=== PATIENT | male | born 1990 ===

== ENCOUNTER 2022-03-17 15:36 | Emergency (ER) | payer MEDICAID | END 2022-03-17 16:38 | disposition home or self-care (01) | LOC: MW.ED 15:36 | DX: L30.9 Dermatitis, unspecified (principal); Z79.899 Other long term (current) drug therapy | CPT/HCPCS: 99282; 99283 ==

== ENCOUNTER 2023-03-14 06:50 | Emergency (ER) | payer SELFPAY ==
[2023-03-14] MEDS ORDERED: Morphine 4 MG/ML Syringe IVPUSH ONE (06:53)
[2023-03-14] MEDS ORDERED: droPERidol 5 MG/2 ML SDV IVPUSH ONE (06:53)
[2023-03-14] MEDS: Sodium Chloride 0.9% 1,000 ML IV ONE ×2 (07:02→09:16)
[2023-03-14] MEDS ORDERED: Iopamidol 755 MG/ML 500 ML Multipack Bottle IVPUSH ONE (07:12)
[2023-03-14 07:21] LABS: BASOPHILS ABSOLUTE AUTO 0.06 K/uL (0.00-0.20); BASOPHILS PERCENT AUTO 0.4 % (0.0-1.0); EOSINOPHILS ABSOLUTE AUTO 0.05 K/uL (0.00-0.45); EOSINOPHILS PERCENT AUTO 0.4 % (0.0-6.0); HEMATOCRIT 41.4 % (42.0-52.0); HEMOGLOBIN 14.5 g/dL (14.0-18.0); IMMATURE GRAN ABSOLUTE AUTO 0.09 K/uL (0.00-0.05); IMMATURE GRAN PERCENT AUTO 0.6 % (0.0-0.4); LYMPHOCYTES ABSOLUTE AUTO 1.12 K/uL (1.00-4.80); LYMPHOCYTES PERCENT AUTO 7.9 % (24.0-44.0); MEAN CORPUSCULAR HEMOGLOBIN 30.4 pg (28.0-32.0); MEAN CORPUSCULAR VOLUME 86.8 fL (83.0-99.0); MEAN PLATELET VOLUME 8.7 fL (9.4-12.4); MONOCYTES ABSOLUTE AUTO 0.58 K/uL (0.00-0.80); MONOCYTES PERCENT AUTO 4.1 % (0.0-8.0); NEUTROPHILS PERCENT AUTO 86.6 % (41.0-71.0); PLATELET COUNT,PLT 333 K/uL (150-400); RED BLOOD CELL COUNT 4.77 M/uL (4.52-5.90)
[2023-03-14 07:41] LABS: A/G RATIO 0.9 (0.9-1.6); ALANINE AMINOTRANSFERASE,ALT 34 IU/L (14-63); ALBUMIN 3.7 g/dL (3.4-5.0); ALKALINE PHOSPHATASE 94 U/L (46-116); ASPARTATE AMNIOTRANSFERASE,AST 17 IU/L (15-37); BILIRUBIN TOTAL 0.4 mg/dL (0.2-1.0); BLOOD UREA NITROGEN,BUN 16 mg/dL (7.0-18.0); CALCIUM 8.9 mg/dL (8.5-10.1); CARBON DIOXIDE,CO2 24.6 mmol/L (21.0-32.0); CHLORIDE,CL 103 mmol/L (98-107); CREATININE 1.1 mg/dL (0.8-1.3); GLUCOSE RANDOM 126 mg/dL (74-106); LIPASE 42 U/L (16-77); MAGNESIUM 1.7 mg/dL (1.8-2.4); POTASSIUM,K 3.6 mmol/L (3.5-5.1); PROTEIN TOTAL,TP 7.7 g/dL (6.4-8.2); SODIUM,NA 140 mmol/L (136-148)
[2023-03-14 07:45] LABS: ESTIMATED GFR 90 mL/min (>60)
[2023-03-14 07:46] LABS: LACTIC ACID 1.9 mmol/L (0.4-2.0)
[2023-03-14] MEDS ORDERED: HYDROmorphone 1 MG/ML Syringe IVPUSH ONE (08:13)
[2023-03-14] MEDS ORDERED: Iopamidol 755 MG/ML 500 ML Multipack Bottle IVPUSH STA (08:42)
[2023-03-14] MEDS ORDERED: Sodium Chloride 0.9% 1,000 ML IV ONE ×2 (09:15→10:18)
[2023-03-14] MEDS ORDERED: Ketorolac 30 MG/ML SDV IVPUSH ONE (09:30)
[2023-03-14] MEDS ORDERED: Ondansetron 4 MG/2 ML SDV IVPUSH ONE (09:30)
[2023-03-14] MEDS ORDERED: Alum Hydro/Mag Hydro/Simeth XS 15 ML, Lidocaine 2% 5 ML PO ONE ×2 (11:25)
== END 2023-03-14 12:25 | disposition home or self-care (01) ==
LOC: MW.ED 06:50
DX: R11.2 Nausea with vomiting, unspecified (principal)
CPT/HCPCS: 36415; 74177; 80053; 83605; 83690; 83735; 85025; 96361; 96374; 96375; 99285; A9270; J1170; J1790; J1885; J2270; J2405; J7030; Q9967; 99284